=== PATIENT | male | born 1970 | race Two or more races ===

== ENCOUNTER → 2017-10-30 | Emergency (ER) | payer OTHER ==
[~2017-10-30] VITALS: Ht 190.5 cm; Wt 95.3 kg
[~2017-10-30] MED LIST: DEPO-MEDRO40 MG/1 ML IJ; DICLOFENAC POTA50 MG PO; NO TOMA MEDICAMENTO; NORFLEX100MG PO
== END | disposition home or self-care (01) ==
LOC: ER 01:11
DX: M54.5 Low back pain (principal)